=== PATIENT | male | born 1985 | race Caucasian/White ===

== ENCOUNTER 2018-02-02 03:13 | Emergency (ER) | payer OTHER ==
[2018-02-02 03:25] VITALS: BP 134/88
--- NOTE | 2018-02-02 03:32 | ED Physician Documentation ---
PD HPI TRUNK INJURY - Stated complaint Stated Complaint: BACK PX - Chief complaint Chief Complaint: Ext Problem - History obtained from History obtained from: Patient - History of Present Illness Location: Posterior chest (right ribs/chest in mid scapular line about level of T6-8) Type of injury: Fall (he was tossing wood from his pickup bed and foot slipped/ went off the end, and the patient fell from tailgate to the ground. Denies head nor neck injury. was feeling better and then had abrupt worse again today with twisting.) Timing - onset: How many days ago (6) Timing - duration: Days (6) Timing - details: Abrupt onset, Waxing and waning (was improving from original injury and then worse again today.) Quality: Pain, Sharp Improved by: Rest Worsened by: Moving, Palpating Associated symtptoms: No: Weakness, Numbness, Swelling Similar symptoms before: Has not had sx before Recently seen: Not recently seen Review of Systems Constitutional: denies: Fever, Chills Nose: denies: Rhinorrhea / runny nose, Congestion Throat: denies: Sore throat Cardiac: denies: Palpitations Respiratory: denies: Cough GI: denies: Nausea, Vomiting, Diarrhea Skin: denies: Rash, Lesions, Abrasion (s), Laceration (s) Neurologic: denies: Focal weakness, Numbness, Confused, Altered mental status, Headache, Head injury PD PAST MEDICAL HISTORY - Past Medical History Past Medical History: No Cardiovascular: None Respiratory: None Neuro: None Endocrine/Autoimmune: None GI: None : None HEENT: None Psych: None Musculoskeletal: None Derm: None - Past Surgical History Past Surgical History: No - Present Medications Home Medications: Ambulatory Orders Medication Instructions Recorded Confirmed HYDROcod/ACETAM 5/325 [[place] 5/325] 1 tab PO Q6H PRN #15 tablet 02/02/18 Methocarbamol [Robaxin] 500 mg PO Q6H PRN #20 tablet 02/02/18 - Allergies Allergies/Adverse Reactions: Allergies Allergy/AdvReac Type Severity Reaction Status Date / Time No Known Drug Allergies Allergy Verified 02/02/18 03:24 - Social History Does the pt smoke?: No Smoking Status: Never smoker Does the pt drink ETOH?: Yes Does the pt have substance abuse?: No - Immunizations Immunizations are current?: Yes - POLST Patient has POLST: No PD ED PE NORMAL - Vitals Vital signs reviewed: Yes - General General: Alert and oriented X 3, No acute distress, Well developed/nourished - HEENT HEENT: Atraumatic - Neck Neck: Supple, no meningeal sign, No bony TTP - Cardiac Cardiac: RRR, No murmur - Respiratory Respiratory: Clear bilaterally - Abdomen Abdomen: Normal bowel sounds, Soft, Non tender, Non distended, No organomegaly - Back Back: No spinal TTP, Other (tender midscapular area right back at level of T6-8 without obvious crepitance nor deformity.) Results - Vitals Vitals: Oxygen O2 Source Room air - Rads (name of study) chest xray Radiology: Prelim report reviewed, EMP read contemporaneously (no fractures seen ; lungs appear normal. ) PD MEDICAL DECISION MAKING - ED course Complexity details: reviewed results, considered differential, d/w patient Departure - Departure Disposition: 01 Home, Self Care Clinical Impression: Fall from stationary vehicle Qualifiers: Encounter type: initial encounter Qualified Code(s): W17.89XA - Other fall from one level to another, initial encounter Contusion of thoracic wall Qualifiers: Encounter type: initial encounter Contusion of thoracic wall detail: back wall of thorax Laterality: right Qualified Code(s): S20.221A - Contusion of right back wall of thorax, initial encounter Condition: Stable Record reviewed to determine appropriate education?: Yes Instructions: ED Contusion Vs Minor Fx Rib Follow-Up: [facility] [Provider Group] Prescriptions: HYDROcod/ACETAM 5/325 [[place] 5/325] 1 tab PO Q6H PRN #15 tablet PRN Reason: Pain Methocarbamol [Robaxin] 500 mg PO Q6H PRN #20 tablet PRN Reason: Spasms Comments: I do not see any broken ribs on x-ray. Sometimes it can be a little hairline crack that does not show. He can still hurt from just bruising in the chest wall and back of the shoulder. Avoid heavy lifting and push pull for a few more days and progress activity as able. Naproxen or ibuprofen initially for pains to 3 times a day. Add Robaxin muscle relaxant as needed for stiffness and spasms. Add Tylenol or hydrocodone if needed for worse pains in particular for sleep. Recheck if still not improved over the next several days to week. Discharge Date/Time: 02/02/18 05:02
[2018-02-02] MEDS ORDERED: HYDROcod/ACET 5/325 Prepack 4 PO STA (03:43)
[2018-02-02] MEDS ORDERED: METHOCARBAMOL 500 MG TABLET PO STA (03:43)
[2018-02-02] MEDS ORDERED: IBUPROFEN 600 MG TABLET PO STA (03:43)
[2018-02-02] MEDS ORDERED: ACETAMINOPHEN 325 MG TABLET PO STA (03:43)
--- NOTE | 2018-02-02 04:29 | XRAY Report ---
EXAM: CHEST RADIOGRAPHY EXAM DATE: 02/02/2018 04:02 AM. CLINICAL HISTORY: Right thoracic pain after fall. COMPARISON: None. TECHNIQUE: 2 views. FINDINGS: Lungs/Pleura: No focal opacities evident. No pleural effusion. No pneumothorax. Normal volumes. Mediastinum: Heart and mediastinal contours are unremarkable. Other: No definite acute osseous abnormality seen. IMPRESSION: Normal 2-view chest radiography. [facility] Referring Provider Line: [phone] SITE ID: [id number]
== END 2018-02-02 05:02 | disposition home or self-care (01) ==
LOC: ED 03:13
DX: S20.221A Contusion of right back wall of thorax, initial encounter (principal); W17.89XA Other fall from one level to another, initial encounter
CPT/HCPCS: 71046; 99283; A9270

== ENCOUNTER 2018-04-29 03:31 | Emergency (ER) | payer OTHER ==
[2018-04-29 03:38] VITALS: BP 121/83
[2018-04-29] MEDS ORDERED: DEXAMETHASONE 10 MG/ML VIAL PO STA (03:40)
[2018-04-29] MEDS ORDERED: ACETAMINOPHEN 500 MG TABLET PO STA (03:41)
[2018-04-29] MEDS ORDERED: PENICILLIN G BENZATHINE 600,000 UNIT/ML SYRINGE IM STA (03:57)
[2018-04-29] MEDS ORDERED: LIDOCAINE VISCOUS 2% 15 ML UDC MM STA (03:57)
[2018-04-29] MEDS ORDERED: CHERRY SYRUP 10 ML UDC PO ONE (03:58)
--- NOTE | 2018-04-29 04:09 | ED Physician Documentation ---
PD HPI HEENT - Stated complaint Stated Complaint: SORE THROAT - Chief complaint Chief Complaint: Heent - History obtained from History obtained from: Patient - History of Present Illness Timing - onset: Yesterday Timing - details: Gradual onset, Still present Location: Throat Associated symptoms: No: Fever, Congestion Similar symptoms before: Has not had sx before Recently seen: Not recently seen - Additional information Additional information: patient is a 32 year old male with no significant past medical history who is presenting to the emergency department for right sided throat pain. patient states that his symptoms have been going on for the last couple of days and have become progressively worse. Patient states that he had been taking naproxen and lozenges with little relief. Review of Systems Ten Systems: 10 systems reviewed and negative Constitutional: denies: Fever, Chills Throat: reports: Sore throat PD PAST MEDICAL HISTORY - Past Medical History Cardiovascular: None Respiratory: None Endocrine/Autoimmune: None GI: None : None HEENT: None Psych: None Musculoskeletal: None Derm: None - Past Surgical History Past Surgical History: No - Present Medications Home Medications: Ambulatory Orders Medication Instructions Recorded Confirmed HYDROcod/ACETAM 5/325 [[place] 5/325] 1 tab PO Q6H PRN #15 tablet 02/02/18 Methocarbamol [Robaxin] 500 mg PO Q6H PRN #20 tablet 02/02/18 - Allergies Allergies/Adverse Reactions: Allergies Allergy/AdvReac Type Severity Reaction Status Date / Time No Known Drug Allergies Allergy Verified 04/29/18 03:38 - Social History Does the pt smoke?: No Smoking Status: Never smoker Does the pt drink ETOH?: Yes Does the pt have substance abuse?: No - Immunizations Immunizations are current?: Yes - POLST Patient has POLST: No PD ED PE NORMAL - Vitals Vital signs reviewed: Yes - General General: Alert and oriented X 3 - HEENT HEENT: Atraumatic - Neck Neck: Supple, no meningeal sign - Cardiac Cardiac: RRR - Respiratory Respiratory: No respiratory distress - Abdomen Abdomen: Non distended - Derm Derm: Normal color, Warm and dry - Extremities Extremities: No deformity - Neuro Neuro: Alert and oriented X 3 Eye Opening: Spontaneous PD ED PE EXPANDED - HEENT HEENT: Pharyngeal erythema, Swollen tonsils, Tonsillar exudate - Neck Neck: Adenopathy Results - Vitals Vitals: Vital Signs - 24 hr 04/29/18 03:36 Temperature 36.6 C Heart Rate 103 H Respiratory 18 Rate Blood Pressure 121/83 H O2 Saturation 96 Oxygen O2 Source Room air - Labs Labs: Laboratory Tests 04/29/18 03:44 Group A Strep Rapid POSITIVE H PD MEDICAL DECISION MAKING - ED course Complexity details: reviewed old records, reviewed results, re-evaluated patient , considered differential, d/w patient ED course: patient was seen and examined at bedside. rapid strep was performed and was positive. patient was treated with tylenol, decadron, bicillin and viscous lidocaine. patient required no further work up at this time and was stable for discharge with outpatient followup. - Sepsis Event Vital Signs: Vital Signs - 24 hr 04/29/18 03:36 Temperature 36.6 C Heart Rate 103 H Respiratory 18 Rate Blood Pressure 121/83 H O2 Saturation 96 Oxygen O2 Source Room air Departure - Departure Disposition: 01 Home, Self Care Clinical Impression: Strep throat Condition: Good Instructions: ED Strep Pharyngitis Conf Follow-Up: AGUILAR MURRAY III, MD [Primary Care Provider] - Within 3 Days Comments: Your symptoms today are being caused by strep throat. you were treated with penicillin today so it should get better over the next few days. you should continue with motrin or tylenol as needed for pain. You can also you lozenges or sprays to help control the pain as well. You should follow up with your doctor if your symptoms don't improve. you may return to the emergency department at any time for new, worsening or uncontrollable symptoms.
== END 2018-04-29 04:15 | disposition home or self-care (01) ==
LOC: ED 03:31
DX: J02.0 Streptococcal pharyngitis (principal)
CPT/HCPCS: 87430; 96372; 99283; A9270

== ENCOUNTER 2021-03-01 02:13 | Emergency (ER) | payer OTHER ==
--- NOTE | 2021-03-01 02:21 | ED Physician Documentation ---
PD HPI OPHTHO - Stated complaint Stated Complaint: R EYE PX - History obtained from History obtained from: Patient - History of Present Illness Timing - onset: How many minutes ago (30) Timing - details: Abrupt onset (he awoke with feeling of irritation right eye. He thought contact lens was in wrong to attempted to take it out, but was unable and eye remained irritated with FB sensation. Here for eval.), Still present Location: Right Quality / character: Other (FB sensation and irritated right eye feeling under upper eyelid.) Associated symptoms: FB sensation, Decreased vision (c/w not having contact lens in). No: Redness, Swelling, Matting Contributing factors: Wears contacts Similar symptoms before: Diagnosis (has had this occur with contact lens stuck under eyelid.) Review of Systems Constitutional: denies: Fever, Chills Eyes: reports: Irritation. denies: Loss of vision, Photophobia, Discharge Nose: denies: Rhinorrhea / runny nose, Congestion Throat: denies: Sore throat Respiratory: denies: Cough PD PAST MEDICAL HISTORY - Past Medical History Cardiovascular: None Respiratory: None Endocrine/Autoimmune: None GI: None : None HEENT: None Psych: None Musculoskeletal: None Derm: None - Past Surgical History Past Surgical History: No - Allergies Allergies/Adverse Reactions: Allergies Allergy/AdvReac Type Severity Reaction Status Date / Time No Known Drug Allergies Allergy Verified 03/01/21 02:27 - Social History Does the pt smoke?: No Smoking Status: Never smoker Does the pt drink ETOH?: Yes Does the pt have substance abuse?: No - Immunizations Immunizations are current?: Yes - POLST Patient has POLST: No PD ED PE NORMAL - Vitals Vital signs reviewed: Yes - General General: Alert and oriented X 3, No acute distress, Well developed/nourished - HEENT HEENT: PERRL, EOMI PD ED PE EXPANDED - Eyes Eyes: Corneal abrasion (2 oclock position under medial upper lid, with superficial abrasion. No ulceration noted. No discharge. I could not see any contact lens/FB. ), Fluorescein uptake. No: Conj/sclera FB, Corneal FB Results - Vitals Vitals: Vital Signs - 24 hr 03/01/21 02:20 Temperature 36.2 C L Heart Rate 73 Respiratory 18 Rate Blood Pressure 144/97 H O2 Saturation 97 Oxygen O2 Source Room air Departure - Departure Disposition: Home, Self Care Clinical Impression: Corneal abrasion due to contact lens Qualifiers: Laterality: right Qualified Code(s): H18.821 - Corneal disorder due to contact lens, right eye Condition: Stable Record reviewed to determine appropriate education?: Yes Instructions: ED Eye Injury Corneal Abrasion Follow-Up: [facility] [Provider Group] Comments: I do not see a contact lens still in. There is a superficial abrasion on the surface of the eye at approximately the 2 o'clock position. I think this is the cause of your discomfort. Tylenol ibuprofen if needed for pains. Resting the eye today will be helpful. Typically the abrasions will heal over the course of a day or two. Recheck if not better in that timeframe. Forms: Activity restrictions Discharge Date/Time: 03/01/21 02:53
[2021-03-01 02:24] VITALS: BP 144/97
[2021-03-01] MEDS ORDERED: ERYTHROMYCIN OPHTH OINT 1 GM TUBE RIGHTEYE STA (02:41)
== END 2021-03-01 02:53 | disposition home or self-care (01) ==
LOC: ED 02:13
DX: H18.821 Corneal disorder due to contact lens, right eye (principal)
CPT/HCPCS: 99281; 99282; J3490